=== PATIENT | male | born 1930 | race Caucasian/White ===

== ENCOUNTER → 2016-04-28 | Outpatient (REF) | payer MEDICARE ==
[~2016-04-28] MED LIST: ALLO100T PO; AMIO100T PO; AMIO200T PO; AMIO200T2 PO; ASPI-479 PO; ASPI-504 PO; BMT1T PO; CARV12.5 PO; CARV3.12 PO; CLOP75TA3 PO; COLC0.6T7 PO; FOLI0.4T4 PO; FURO-124 PO; FURO40TA4 PO; HYDR-3754 PO; ISM60TCR PO; ISOS60TA PO; KCL20TCR PO; LEVO50TA PO; LSNP10T PO; LVT.1T PO; MAGN200T PO; MGX400T PO; MULT-954 PO; MULT1TAB PO; NITR0.4T7 SL; OMEP20CA12 PO; POTA20TA15 PO; PRAV20TA PO; PRAV40TA2 PO; RIVA20TA PO; SIMV40TA2 PO; SMV20T PO; SPIR25TA PO; TRAM-25 PO; TRM50T PO; WARF4TAB PO; WARF4TAB7 PO; WARF5TAB6 PO
[2016-04-28 15:30] LABS: BASOPHILS % (AUTO) 1 % (0-2); EOSINOPHILS # (AUTO) 0.2 10^3uL; EOSINOPHILS % (AUTO) 3 % (0-4); LYMPHOCYTES # (AUTO) 0.9 X10^3; MEAN CORPUSCULAR HGB CONC 32.7 g/dL (31.0-37.0); MEAN PLATELET VOLUME 9.5 FL (6.0-9.5); MONOCYTES # (AUTO) 0.7 X10^3; MONOCYTES % (AUTO) 10 % (3-11); NEUTROPHILS # (AUTO) 5.4 X10^3; NEUTROPHILS % (AUTO) 74 % (51-67); PLATELET COUNT 190 10^3uL (150-450); WHITE BLOOD COUNT 7.25 10^3uL (4.0-11.0)
[2016-04-28 15:31] LABS: MEAN CORPUSCULAR HEMOGLOBIN 32.7 PG (26.0-34.0); MEAN CORPUSCULAR VOLUME 100 FL (80-100)
[2016-04-28 15:42] LABS: ALBUMIN 4.3 g/dL (3.4-5.0); ANION GAP 17.7 MEQ/L (3-15); CALCULATED IONIZED CALCIUM 3.8 mg/dL (3.8-4.6); TOTAL PROTEIN 8.3 g/dL (6.4-8.5)
== END ==
LOC: LAB 14:56
PROVIDERS: ATTEND Family Medicine
DX: E11.9 Type 2 diabetes mellitus without complications (principal); I10 Essential (primary) hypertension; I48.0 Paroxysmal atrial fibrillation; I50.33 Acute on chronic diastolic (congestive) heart failure
CPT/HCPCS: 80053; 83036; 83880; 84550; 85025; 85610

== ENCOUNTER → 2016-05-19 | Outpatient (REF) | payer MEDICARE | LOC: LAB 17:15 | PROVIDERS: ATTEND Family Medicine | DX: Z51.81 Encounter for therapeutic drug level monitoring (principal); Z79.01 Long term (current) use of anticoagulants | CPT/HCPCS: 85610 ==